=== PATIENT | female | born 1980 | race Two or more races ===

== ENCOUNTER 2023-06-21 20:33 | Emergency (ER) | payer OTHER ==
[~2023-06-21] VITALS: Ht 157.5 cm; Wt 74.8 kg
[2023-06-21] MEDS ORDERED: SYNTHROID112 MCG PO (20:57)
[2023-06-21] MEDS ORDERED: COZAAR25 MG PO (20:58)
[2023-06-21 22:27] LABS: HEMATOCRIT 35.8 % (36.0-45.00); HEMOGLOBIN 11.1 g/dL (12.0-15.00); MEAN CORPUSCULAR HEMOGLOBIN 21.6 pg (27.00-32.0); MEAN CORPUSCULAR HGB CONC 31.1 g/dl (32.0-36.0); PLATELET COUNT 414 K/uL (150-450); RED BLOOD COUNT 5.15 M/uL (4.00-6.00); RED CELL DISTRIBUTION WIDTH 18.6 % (11.5-14.5)
[2023-06-21 22:28] LABS: MEAN CELL VOLUME 69.4 fL (80.00-100.00)
[2023-06-21 22:54] LABS: ALBUMIN 3.7 gm/dL (3.4-5.0); ALKALINE PHOSPHATASE 153 U/L (50-136); ALT/SGPT 64 U/L (12-78); ANION GAP 9 (10.0-20.0); AST/SGOT 46 U/L (15-37); BILIRUBIN TOTAL 0.35 mg/dL (0.3-1.2); BLOOD UREA NITROGEN 15 mg/dL (7-18); BUN CREA RATIO 18 (7.0-25.0); CALCIUM 8.8 mg/dL (8.5-10.1); CARBON DIOXIDE 24 mEq/L (21-32); CHLORIDE 109 mmol/L (98-107); CREATININE SERUM 0.82 mg/dL (0.55-1.02); GFR 75.73; GLOBULINA 3.9 G/DL (2.4-3.5); GLUCOSE FASTING 109 mg/dL (65-100); HCG QUANTITATIVE < 1 mUI/mL (1-3); OSMOLALITY SERUM 277 MOSM/KG (275-295); POTASSIUM 4.04 mEq/L (3.5-5.1); SODIUM 138 mmol/L (136-145); TOTAL PROTEIN 7.6 gm/dL (6.4-8.2)
== END 2023-06-21 23:58 | disposition home or self-care (01) ==
LOC: ER 20:33
PROVIDERS: General Practice
DX: N93.8 Other specified abnormal uterine and vaginal bleeding (principal); E03.9 Hypothyroidism, unspecified; I10 Essential (primary) hypertension